=== PATIENT | male | born 1980 | race Hispanic/Latino ===

== ENCOUNTER 2019-12-01 13:37 | Emergency (ER) | payer OTHER ==
[~2019-12-01] VITALS: Ht 175.3 cm; Wt 81.9 kg
[2019-12-01] MEDS ORDERED: NS 1,000 ML IV ONE (14:00)
[2019-12-01 14:57] LABS: BASO % 0.6 % (0.0-1.0); EOS # 0.1 10^3/uL (0.0-0.5); EOS % 1.4 % (0.0-3.0); HEMATOCRIT 42.1 % (42.0-52.0); HEMOGLOBIN 14.4 g/dl (13.5-17.5); LYMPH # 1.3 10^3/uL (1.5-5.0); LYMPH % 26.3 % (24.0-44.0); MEAN CORPUSCULAR HEMOGLOBIN 29.9 pg (27.0-33.0); MEAN CORPUSCULAR HGB CONC 34.2 g/dl (32.0-36.5); MEAN CORPUSCULAR VOLUME 87.5 fl (80.0-96.0); MONO # 0.3 10^3/uL (0.0-0.8); MONO % 5.7 % (0.0-5.0); NEUTROPHILS # 3.3 10^3/uL (1.5-8.5); NEUTROPHILS % 65.8 % (36.0-66.0); PLATELET COUNT, AUTOMATED 200 10^3/uL (150-450); RED BLOOD COUNT 4.81 10^6/uL (4.30-6.10); WHITE BLOOD COUNT 4.9 10^3/uL (4.0-10.0)
[2019-12-01 15:20] LABS: ERYTHROCYTE SEDIMENTATION RATE 2 mm/hr (0-15)
[2019-12-01 15:25] LABS: ALBUMIN 3.9 GM/DL (3.2-5.2); ALT/SGPT 22 U/L (12-78); BILIRUBIN,DIRECT 0.2 MG/DL (0.0-0.2); BILIRUBIN,TOTAL 0.6 MG/DL (0.2-1.0); BLOOD UREA NITROGEN 14 MG/DL (7-18); CALCIUM LEVEL 9.1 MG/DL (8.5-10.1); CARBON DIOXIDE LEVEL 26 MEQ/L (21-32); CHLORIDE LEVEL 109 MEQ/L (98-107); CK-MB VALUE MASS < 1.0 NG/ML (<3.6); CPK CREATINE PHOSPHOKINASE 135 U/L (39-308); CREATININE FOR GFR 1.19 MG/DL (0.70-1.30); GLOMERULAR FILTRATION RATE > 60.0 (>60); GLUCOSE, FASTING 108 MG/DL (70-100); MB/CK RELATIVE INDEX 0.74 (< OR =4); NT-PRO BNP 26 PG/ML (<125); POTASSIUM SERUM 3.9 MEQ/L (3.5-5.1); SODIUM LEVEL 141 MEQ/L (136-145); TOTAL PROTEIN 6.8 GM/DL (6.4-8.2)
--- NOTE | 2019-12-01 16:08 | REP ---
CHEST SINGLE VIEW: Single view of the chest is performed. There are no priors studies. There is an azygous lobe on the right. No infiltrate is seen. The heart is normal in size. Mediastinal silhouette is unremarkable. 8 mm nodular density in the lateral right lung base may represent a calcified granuloma. Recommend further evaluation with chest, CT. Electronically Signed by Manuel Graves MD 12/02/2019 12:35 P
[2019-12-01 18:15] VITALS: BP 128/83
--- NOTE | 2019-12-01 19:04 | ECGEPIP ---
[facility] - ED Test Date: 2019-12-01 Pat Name: BRYON LOPEZ Department: Room: - Gender: Male [employer]: : 1980 Requested By: HARIKA HADLEY Order Number: [id number] Reading MD: Jarrod Bean Measurements Intervals [place] Rate: 59 P: 54 [place]: 174 QRS: 54 QRSD: 93 T: 55 QT: 416 QTc: 413 Interpretive Statements SINUS BRADYCARDIA NO PRIORS FOR COMPARISON Electronically Signed on 12-01-2019 19:04:27 EDT by Jarrod Bean
--- NOTE | 2019-12-02 08:37 | ECGEPIP ---
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
--- NOTE | 2019-12-04 14:09 | ED PDOC ---
Post-Departure Follow-Up tasia schneider faxed formal report of cxr-p for fu Chad Ozuna MD Dec 04, 2019 14:08
== END 2019-12-01 18:28 | disposition home or self-care (01) ==
LOC: M ED 13:37
DX: R07.89 Other chest pain (principal)